=== PATIENT | male | born 1970 ===

== ENCOUNTER 2019-05-03 11:58 | Emergency (ER) | payer MEDICAID, SELFPAY ==
[~2019-05-03] VITALS: Ht 162.6 cm; Wt 78.0 kg
[2019-05-03] MEDS ORDERED: METFORMIN PO (12:20)
--- NOTE | 2019-05-03 12:23 | NUR ---
PT A&OX4, RESP EVEN & UNLABORED, SPEECH CLEAR. STATES HE WAS CARRYING SOME BOXES AND FELL FACE FIRST DOWN FOUR WOODEN STEPS. C/O RT SHOULDER PAIN. ABRASIONS TO RT SHOULDER & BILAT KNEES, SCRATCHES TO UPPER BACK. DRIED BLOOD ON LIPS. PT DENIES PAIN TO MOUTH/JAW. LT LOWER LIP SLIGHTLY SWOLLEN. LIMITED ROM RT ARM; RADIAL PULSE STRONG & REG. TD STATUS UNKNOWN TO PT.
[2019-05-03] MEDS ORDERED: DIPH,PERTUSS(ACELL),TET VAC/PF 0.5 ML IM-VACC ONE ×2 (13:00→13:24)
[2019-05-03 13:31] VITALS: BP 121/78
== END 2019-05-03 13:43 | disposition home or self-care (01) ==
LOC: ED 12:53
DX: S00.531A Contusion of lip, initial encounter (principal); S40.211A Abrasion of right shoulder, initial encounter; S80.211A Abrasion, right knee, initial encounter; S80.212A Abrasion, left knee, initial encounter; I10 Essential (primary) hypertension; E11.9 Type 2 diabetes mellitus without complications; X58.XXXA Exposure to other specified factors, initial encounter; Y93.89 Activity, other specified; Y92.89 Other specified places as the place of occurrence of the external cause; Y99.8 Other external cause status
CPT/HCPCS: 70100; 71046; 90471; 90715; 99284

== ENCOUNTER 2019-09-15 05:57 | Emergency (ER) | payer MEDICAID ==
[~2019-09-15] VITALS: Ht 170.2 cm; Wt 73.0 kg
[~2019-09-15 05:57] MED LIST: METFORMIN PO
--- NOTE | 2019-09-15 06:12 | NUR ---
BIB [facility] BECAUSE "I TOOK LSD AND A LOT OF ALCOHOL, I WANT TO GET CHECKED OUT." A&OX4, AMBULALTORY TO ROOM. PT TACHY WITH HR OF 104-112 AND ELEVATED BP WITH HX OF SAME. PT CONNECTED TO CARDIAC, BP AND O2 MONITORS. SIDE RAILS UP. PT TALKING TO SELF AND IN AND OUT OF SLEEP. CALL LIGHT IN REACH.
[2019-09-15 06:25] LABS: BASOPHILS # (AUTO) 0.03 x10^3/uL (0-0.1); BASOPHILS % (AUTO) 1 % (0-1); EOSINOPHILS # (AUTO) 0.01 x10^3/uL (0-0.4); EOSINOPHILS % (AUTO) 0 % (1-7); LYMPHOCYTES # (AUTO) 1.03 x10^3/uL (1-3.4); LYMPHOCYTES % (AUTO) 31 % (22-44); MD NO; MEAN CORPUSCULAR HEMOGLOBIN 30.6 pg (27.5-34.5); MEAN CORPUSCULAR HGB CONC 34.1 g/dL (33.2-36.2); MEAN CORPUSCULAR VOLUME 89.7 fL (81-97); MEAN PLATELET VOLUME 7.5 fL (7.4-10.4); MONOCYTES # (AUTO) 0.17 x10^3/uL (0.2-0.8); MONOCYTES % (AUTO) 5 % (2-9); NEUTROPHILS # (AUTO) 2.05 x10^3/uL (1.8-6.8); NEUTROPHILS % (AUTO) 63 % (42-75); PLATELET COUNT 263 x10^3/uL (130-400); RED CELL DISTRIBUTION WIDTH 14.2 % (9.4-14.8)
[2019-09-15 06:42] LABS: ANION GAP 9 mmol/L (5-15); CALCIUM 8.3 mg/dL (8.5-10.1); CHLORIDE 106 mmol/L (98-107)
--- NOTE | 2019-09-15 06:58 | NUR ---
BEDSIDE REPORT GIVEN TO CAMILLE ADAMES.
[2019-09-15 07:09] LABS: SALICYLATE LEVEL < 1.7 mg/dL (2.8-20.0)
--- NOTE | 2019-09-15 07:09 | NUR ---
RECEIVED REPORT FROM NIESHA OBRIEN AND ASSUMED CARE OF PT. PT SLEEPING, BREATHING EVEN AND UNLABORED
--- NOTE | 2019-09-15 07:43 | NUR ---
UOB TO USE URINAL. HR 130 WHEN STANDING AND BACK TO 105 WHEN BACK IN BED. PT STATES HE DOES NOT FEEL RIGHT AND THAT HIS HEART IS BEATING FAST. ASSURED PT WE ARE MONITORING HIM AND THAT HE IS ALRIGHT. PT GIVEN CALL LIGHT AND DIRECTED NOT TO GET OOB WITHOUT ASSISTANCE
[2019-09-15 07:59] LABS: AMPHETAMINE SCREEN, URINE Negative (Negative); BARBITURATE SCREEN, URINE Negative (Negative); BENZODIAZEPINE SCREEN, URINE Negative (Negative); CANNABINOID SCREEN, URINE Negative (Negative); COCAINE SCREEN, URINE Negative (Negative); METHADONE SCREEN, URINE Negative (Negative); OPIATE SCREEN, URINE Negative (Negative)
--- NOTE | 2019-09-15 09:16 | NUR ---
CONTINUE TO MONITOR PT. AWAKE BRIEFLY AND THEN WENT BACK TO SLEEP
[2019-09-15 09:59] VITALS: BP 147/64
--- NOTE | 2019-09-15 09:59 | NUR ---
AMBULATED TO DISCHARGE WINDOW, STEADY GAIT. PT USING TELEPHONE TO CALL FOR RIDE.
== END 2019-09-15 10:01 | disposition home or self-care (01) ==
LOC: ED 07:49
DX: F10.120 Alcohol abuse with intoxication, uncomplicated (principal); I10 Essential (primary) hypertension; E11.9 Type 2 diabetes mellitus without complications; F17.290 Nicotine dependence, other tobacco product, uncomplicated; Y90.9 Presence of alcohol in blood, level not specified
CPT/HCPCS: 36415; 80048; 80307; 82040; 82140; 85025; 99283